=== PATIENT | female | born 1930 | race Caucasian/White ===

== ENCOUNTER 2017-12-12 17:49 | Emergency (ER) | payer MEDICARE, OTHER ==
[~2017-12-12] VITALS: Ht 152.4 cm; Wt 63.5 kg
[~2017-12-12 17:49] MED LIST: DULO30CA2 PO; ESTR0.3T PO; METO25TA62 PO
[2017-12-12] MEDS ORDERED: ENOXAPARIN SOD 100 MG/1 ML SYRINGE SC ONE (19:30)
[2017-12-12 20:06] LABS: Basophils # (auto) 0.1 uL; Basophils % (auto) 0.9 % (0.0-2.0); Eosinophils # (auto) 0.1 uL; Eosinophils % (auto) 1.2 % (0.0-7.0); Hematocrit 46.6 % (36.0-46.0); Hemoglobin 15.3 g/dL (12.2-16.2); Lymphocytes # (auto) 1.5 uL; Lymphocytes % (auto) 19.6 % (10.0-50.0); Mean Corpuscular Hemoglobin 31.3 pg (28.0-32.0); Mean Corpuscular Volume 95.1 fL (80.0-100.0); Monocytes # (auto) 0.7 uL; Monocytes % (auto) 9.3 % (0.0-12.0); Neutrophils # (auto) 5.3 uL; Nucleated Red Blood Cells % 0.1 %; Platelet Count (auto) 248 10^3/uL (140-450); Red Cell Distribution Width 15.3 % (11.8-14.3); White Blood Cell 7.7 10^3/uL (4.4-10.8)
[2017-12-12 20:24] LABS: Albumin 3.1 g/dL (3.4-5.0); Anion Gap 8 (5-15); Blood Urea Nitrogen 28 mg/dL (7-18); Calcium 8.7 mg/dL (8.5-10.1); Carbon Dioxide 29 mmol/L (21-32); Chloride 104 mmol/L (98-107); Glucose 101 mg/dL (74-106); Magnesium 2.4 mg/dL (1.6-2.6); Potassium 4.2 mmol/L (3.5-5.1); Sodium 141 mmol/L (136-145)
[2017-12-12 20:26] LABS: Alanine Aminotransferase 19 U/L (13-56); Aspartate Aminotransferase 18 U/L (15-37); BUN/Creatinine Ratio 31.1; GFR African American 77 mL/min; GFR Non-African American 63 mL/min
[2017-12-12 20:28] LABS: Alkaline Phosphatase 98 U/L (45-117); Bilirubin, Total 0.4 mg/dL (0.2-1.0); Total Protein 7.1 g/dL (6.4-8.2)
[2017-12-12 20:35] LABS: INR 0.96 (0.9-1.15); Partial Thromboplastin Time 23.3 sec (23.78-33.04); Prothrombin Time 10.3 sec (9.27-12.13)
[2017-12-12] MEDS ORDERED: IOHEXOL 350 MG/ML 100ML IJ ONE (21:54)
[2017-12-13] MEDS ORDERED: ACETAMINOPHEN 500 MG TAB PO ONE (01:45)
[2017-12-13 03:35] VITALS: BP 118/50
== END 2017-12-13 05:14 | disposition home or self-care (01) ==
LOC: ER 17:55
DX: I82.401 Acute embolism and thrombosis of unspecified deep veins of right lower extremity (principal); R06.02 Shortness of breath; R79.1 Abnormal coagulation profile; I10 Essential (primary) hypertension; F41.9 Anxiety disorder, unspecified; F32.9 Major depressive disorder, single episode, unspecified
CPT/HCPCS: 36415; 71045; 71275; 80053; 83735; 83880; 84443; 84484; 85025; 85379; 85610; 85730; 93005; 93926; 93971; 94761; 96372; 99285; J1650; Q9967